=== PATIENT | male | born 1985 | race Two or more races ===

== ENCOUNTER 2021-11-12 05:24 | Emergency (ER) | payer SELFPAY ==
[2021-11-12 05:36] VITALS: BP 130/79; PULSE 93; RESP 18; TEMP 97.1; BMI 20.4
== END 2021-11-12 09:01 | disposition home or self-care (01) ==
LOC: JER 05:24
DX: F19.10 Other psychoactive substance abuse, uncomplicated (principal)
CPT/HCPCS: 70450-TC; 82962; 99284-25